=== PATIENT | female | born 1975 | race Asian ===

== ENCOUNTER → 2017-12-01 | Outpatient (CLI) | payer MEDICARE, OTHER, MEDICAID ==
[~2017-12-01] MED LIST: AMLO-511; ARIP10TA8 PO; ATEN25TA PO; CLON2TAB4 PO; ESCI10TA PO; LEVO25TA4 PO; LISI10TA7 PO; QUET100T PO; QUET150T PO
== END | disposition home or self-care (01) ==
LOC: RADPV 10:16
PROVIDERS: ATTEND Internal Medicine Cardiovascular Disease
DX: I34.2 Nonrheumatic mitral (valve) stenosis (principal); I34.0 Nonrheumatic mitral (valve) insufficiency; I50.1 Left ventricular failure, unspecified
CPT/HCPCS: 93306

== ENCOUNTER → 2018-11-06 | Outpatient (CLI) | payer MEDICARE, MEDICAID, OTHER ==
[~2018-11-06] MED LIST changes: +CLON2TAB11 PO; -CLON2TAB4 PO
== END | disposition home or self-care (01) ==
LOC: RADPV 11:19
PROVIDERS: ATTEND Internal Medicine Geriatric Medicine
DX: M79.642 Pain in left hand (principal)

== ENCOUNTER → 2019-03-26 | Outpatient (CLI) | payer MEDICARE, MEDICAID, OTHER ==
[~2019-03-26] MED LIST changes: -QUET150T PO; +QUET150T2 PO; +REGADENOSON 0.4 MG/5 ML PF SYRINGE IVP ONE; +SESTAMIBI TC99M/UD ISOTOPE 1 EA INJ INJ ONE
[2019-03-26 09:05] VITALS: BP 134/84
[2019-03-26 10:16] VITALS: BP 138/83
== END | disposition home or self-care (01) ==
LOC: CARDMN 08:48
PROVIDERS: ATTEND Internal Medicine Cardiovascular Disease
DX: I34.1 Nonrheumatic mitral (valve) prolapse (principal); I25.9 Chronic ischemic heart disease, unspecified
CPT/HCPCS: 78452; 93017; 93306; A9500; J2785

== ENCOUNTER 2023-06-29 20:21 | Inpatient (IN) | payer MEDICARE, OTHER, MEDICAID ==
[~2023-06-29] VITALS: Ht 167.6 cm; Wt 79.3 kg
[~2023-06-29 20:21] MED LIST changes: +AMLO-257; -AMLO-511; +ARIP10TA38 PO; -ARIP10TA8 PO; +ATEN-73 PO; -ATEN25TA PO; +ESCI-8 PO; -ESCI10TA PO; +LISI10TA24 PO; -LISI10TA7 PO; -REGADENOSON 0.4 MG/5 ML PF SYRINGE IVP ONE; -SESTAMIBI TC99M/UD ISOTOPE 1 EA INJ INJ ONE
[2023-06-29] MEDS ORDERED: ACETAMINOPHEN 500 MG TABLET PO ONE (22:30)
[2023-06-29] MEDS ORDERED: RisperiDONE 1 MG TABLET PO ONE (22:30)
[2023-06-29] MEDS ORDERED: LORazepam 2 MG TABLET PO ONE (22:30)
[2023-06-29] MEDS ORDERED: QUEtiapine FUMARATE 100 MG TABLET PO ONE (22:30)
[2023-06-29 22:56] LABS: COVID AG,FIA SOURCE NASAL SWAB
[2023-06-29 23:09] LABS: ALCOHOL, URINE DRUG SCREEN NEGATIVE (NEGATIVE); AMPHET/METH SCREEN,URINE NEGATIVE (NEGATIVE); BARBITURATE SCREEN, URINE NEGATIVE (NEGATIVE); BENZODIAZEPINES SCREEN,URINE NEGATIVE (NEGATIVE); CANNABINOID SCREEN,URINE NEGATIVE (NEGATIVE); COCAINE SCREEN,URINE NEGATIVE (NEGATIVE); METHADONE SCREEN, URINE NEGATIVE (NEGATIVE); OPIATE SCREEN,URINE NEGATIVE (NEGATIVE); PHENCYCLIDINE SCREEN,URINE NEGATIVE (NEGATIVE)
[2023-06-29 23:11] LABS: EOSINOPHILS % (AUTO) 4.3 % (1.0-6.0); HEMATOCRIT 38.9 % (36-46); HEMOGLOBIN 13.1 g/dL (12.0-16.0); LYMPHOCYTES # (AUTO) 1.6 K/uL (1.0-4.8); LYMPHOCYTES % (AUTO) 20.7 % (22.0-44.0); MEAN CORPUSCULAR HEMOGLOBIN 28.7 pg (26.0-34.0); MEAN CORPUSCULAR HGB CONC 33.8 G/dL (31.0-37.0); MEAN CORPUSCULAR VOLUME 85 fL (80-100); MONOCYTES # (AUTO) 0.7 K/uL (0.1-1.0); MONOCYTES % (AUTO) 9.4 % (2.0-9.0); NEUTROPHILS # (AUTO) 5.1 K/uL (1.8-7.7); NEUTROPHILS % (AUTO) 64.6 % (40.0-70.0); PLATELET COUNT (AUTO) 245 K/uL (150-450); RED BLOOD CELL COUNT(AUTO) 4.58 MIL/uL (4.00-5.20); WHITE BLOOD COUNT (AUTO) 7.9 K/uL (4.5-11.0)
[2023-06-29 23:21] LABS: SARS-COV2 (COVID) ANTIGEN,FIA Negative (Negative)
[2023-06-29 23:22] LABS: CARBON DIOXIDE 34 mmol/L (22-29)
[2023-06-29 23:34] LABS: CHOL/HDL RATIO 4.1 (3.9-5.7); FREE T4 (FREE THYROXINE) 0.72 ng/dL (0.76-1.46); THYROID STIMULATING HORMONE 1.68 uIU/mL (0.36-3.74)
[2023-06-29 23:37] LABS: POTASSIUM 4.2 mmol/L (3.5-5.1); SODIUM SERUM 136 mmol/L (136-145)
[2023-06-29 23:38] LABS: ANION GAP 5 mmol/L (8-16); CHLORIDE 97 mmol/L (98-107); CREATININE 0.75 mg/dL (0.60-1.30); GLOMERULAR FILTR. RATE CALC > 60 mL/min (>60); GLUCOSE,RANDOM 138 mg/dL (70-110); UREA NITROGEN, BLOOD 12 mg/dL (7-18)
[2023-06-29 23:39] LABS: ALCOHOL, BLOOD (SERUM) < 3 mg/dL (0-10)
[2023-06-29 23:41] LABS: ALANINE AMINOTRANSFERASE 63 U/L (12-78); ALKALINE PHOSPHATASE 78 U/L (46-116); ASPARTATE AMINOTRANSFERASE 38 U/L (15-37); BILIRUBIN,TOTAL 0.3 mg/dL (0.1-1.0); TOTAL PROTEIN, SERUM 7.5 g/dL (6.4-8.2)
[2023-06-30 03:40] VITALS: BP 126/72; PULSE 78; RESP 17; TEMP 97.8; O2SAT 98
[2023-06-30] MEDS ORDERED: PNEUMOCOCCAL VACCINE POLYVALENT 0.5 ML SYRINGE [PPSV23] IM. ONE (04:15)
[2023-06-30 08:07] VITALS: BP 145/71; PULSE 72; RESP 17; TEMP 97.5; O2SAT 96
[2023-06-30] MEDS ORDERED: GLUCAGON,HUMAN RECOMBINANT 1 MG VIAL IM PRN ×2 (09:00)
[2023-06-30] MEDS ORDERED: METOPROLOL SUCCINATE 50 MG ER TABLET PO SCH (09:00)
[2023-06-30] MEDS: LISINOPRIL 10 MG TABLET PO SCH (10:04)
[2023-06-30] MEDS: METOPROLOL SUCCINATE 25 MG ER TABLET PO SCH (10:04)
[2023-06-30 16:42] LABS: GLUCOMETER DEV NAME(LOC) BV2X.2; GLUCOSE,POINT OF CARE 128 MG/DL (70-110)
[2023-06-30] MEDS: MetFORMIN HCL 850 MG TABLET PO SCH (17:13)
[2023-06-30 20:02] VITALS: BP 148/79; PULSE 75; RESP 17; TEMP 97.9; O2SAT 96
[2023-06-30] MEDS: ATORVASTATIN CALCIUM 10 MG TABLET PO SCH (20:19)
[2023-06-30] MEDS: QUEtiapine FUMARATE 300 MG TABLET PO SCH (20:19)
[2023-06-30] MEDS: ESCITALOPRAM OXALATE 10 MG TABLET PO SCH (20:19)
[2023-06-30] MEDS ORDERED: ARIPiprazole 10 MG TABLET PO SCH (21:00)
[2023-07-01 06:30] LABS: GLUCOMETER DEV NAME(LOC) BV2X.2; GLUCOSE,POINT OF CARE 137 MG/DL (70-110)
[2023-07-01] MEDS: MetFORMIN HCL 850 MG TABLET PO SCH ×2 (06:53→17:03)
[2023-07-01 08:13] VITALS: BP 147/80; PULSE 97; RESP 18; TEMP 97.5; O2SAT 97
[2023-07-01] MEDS: METOPROLOL SUCCINATE 25 MG ER TABLET PO SCH (08:15)
[2023-07-01] MEDS: LISINOPRIL 10 MG TABLET PO SCH (08:15)
[2023-07-01] MEDS ORDERED: IBUPROFEN 600 MG TABLET PO PRN (08:30)
[2023-07-01 09:17] VITALS: RESP 17
[2023-07-01] MEDS ORDERED: BENZOCAINE/MENTHOL LOZENGE PO PRN (09:45)
[2023-07-01 10:17] VITALS: RESP 16
[2023-07-01 10:40] LABS: FREE T4 (FREE THYROXINE) 0.71 ng/dL (0.76-1.46); THYROID STIMULATING HORMONE 0.92 uIU/mL (0.36-3.74)
[2023-07-01 16:56] LABS: GLUCOMETER DEV NAME(LOC) BV2X.2; GLUCOSE,POINT OF CARE 139 MG/DL (70-110)
[2023-07-01 20:03] VITALS: BP 147/79; PULSE 66; RESP 18; TEMP 97.5
[2023-07-01] MEDS: QUEtiapine FUMARATE 300 MG TABLET PO SCH (20:04)
[2023-07-01] MEDS: ATORVASTATIN CALCIUM 10 MG TABLET PO SCH (20:04)
[2023-07-01] MEDS: ESCITALOPRAM OXALATE 10 MG TABLET PO SCH (20:04)
[2023-07-02 06:36] LABS: GLUCOMETER DEV NAME(LOC) BV2X.2; GLUCOSE,POINT OF CARE 187 MG/DL (70-110)
[2023-07-02] MEDS: MetFORMIN HCL 850 MG TABLET PO SCH ×2 (06:58→16:39)
[2023-07-02 08:07] VITALS: BP 147/82; PULSE 90; RESP 17; TEMP 97.1; O2SAT 96
[2023-07-02] MEDS: LISINOPRIL 20 MG TABLET PO SCH (08:19)
[2023-07-02] MEDS: METOPROLOL SUCCINATE 25 MG ER TABLET PO SCH (08:19)
[2023-07-02 08:20] LABS: CHOL/HDL RATIO 4.1 (3.9-5.7)
[2023-07-02] MEDS: INSULIN LISPRO 100 UNITS/ML SQ PRN (16:40)
[2023-07-02 16:56] LABS: GLUCOMETER DEV NAME(LOC) BV2X.2; GLUCOSE,POINT OF CARE 146 MG/DL (70-110)
[2023-07-02 20:05] VITALS: BP 150/89; PULSE 87; RESP 17; TEMP 97.6; O2SAT 97
[2023-07-02] MEDS: QUEtiapine FUMARATE 300 MG TABLET PO SCH (20:14)
[2023-07-02] MEDS: ESCITALOPRAM OXALATE 10 MG TABLET PO SCH (20:14)
[2023-07-02] MEDS: ATORVASTATIN CALCIUM 10 MG TABLET PO SCH (20:14)
[2023-07-02 23:48] VITALS: BP 165/89; PULSE 87; RESP 17; TEMP 97.6; O2SAT 97
[2023-07-03] MEDS: INSULIN LISPRO 100 UNITS/ML SQ PRN ×2 (06:20→16:42)
[2023-07-03] MEDS: MetFORMIN HCL 850 MG TABLET PO SCH ×2 (06:20→16:55)
[2023-07-03 06:21] LABS: GLUCOMETER DEV NAME(LOC) BV2X.2; GLUCOSE,POINT OF CARE 192 MG/DL (70-110)
[2023-07-03 08:00] VITALS: BP 146/87; PULSE 102; RESP 18; TEMP 97.3; O2SAT 96
[2023-07-03] MEDS: LISINOPRIL 20 MG TABLET PO SCH (08:53)
[2023-07-03] MEDS ORDERED: LORATADINE 10 MG TABLET PO SCH ×2 (09:00)
[2023-07-03] MEDS ORDERED: METOPROLOL SUCCINATE 25 MG ER TABLET PO SCH (09:00)
[2023-07-03] MEDS ORDERED: QUET200T PO (16:39)
[2023-07-03 16:46] LABS: GLUCOMETER DEV NAME(LOC) BV2X.2; GLUCOSE,POINT OF CARE 145 MG/DL (70-110)
[2023-07-04] MEDS ORDERED: QUET300T19 PO (05:55)
[2023-07-04] MEDS ORDERED: METF-1185 PO (05:55)
[2023-07-04] MEDS ORDERED: ESCI-8 PO (05:55)
[2023-07-04] MEDS ORDERED: LISI-894 PO (05:55)
[2023-07-04] MEDS ORDERED: ATOR10TA69 PO (05:55)
[2023-07-04] MEDS ORDERED: LORA10TA60 PO (05:55)
== END 2023-07-03 18:52 | disposition home or self-care (01) | DRG 885 ==
LOC: EMS 20:22 → B2X 06-30 01:19
PROVIDERS: ADMIT Psychiatry & Neurology Psychiatry; ATTEND Psychiatry & Neurology Psychiatry
DX: F25.1 Schizoaffective disorder, depressive type (principal); R45.851 Suicidal ideations; E11.22 Type 2 diabetes mellitus with diabetic chronic kidney disease; N18.1 Chronic kidney disease, stage 1; K21.9 Gastro-esophageal reflux disease without esophagitis; J45.909 Unspecified asthma, uncomplicated; Z20.822 Contact with and (suspected) exposure to COVID-19; E78.5 Hyperlipidemia, unspecified; I12.9 Hypertensive chronic kidney disease with stage 1 through stage 4 chronic kidney disease, or unspecified chronic kidney disease; F81.9 Developmental disorder of scholastic skills, unspecified; Z82.49 Family history of ischemic heart disease and other diseases of the circulatory system; Z59.00 Homelessness unspecified; Z83.438 Family history of other disorder of lipoprotein metabolism and other lipidemia; Z79.899 Other long term (current) drug therapy
CPT/HCPCS: 80053; 80061; 80307; 82962; 83036; 84439; 84443; 84703; 85025; 93005; 99285; G0480